=== PATIENT | male | born 1955 | race American Indian/Alaskan Native ===

== ENCOUNTER 2017-05-05 07:47 | Inpatient (IN) | payer MEDICARE ==
[2017-05-05] MEDS ORDERED: Albuterol-Ipratrop 3 mg / 0.5 (3 ml) UD ONE ×2 (08:17→08:48)
[2017-05-05] MEDS ORDERED: Albuterol-Ipratrop 3 mg / 0.5 (3 ml) UD INH STA ×2 (08:28→08:29)
[2017-05-05] MEDS ORDERED: MethylPREDNISolone 40 mg Vial IVP STA (08:28)
[2017-05-05] MEDS ORDERED: METHYLPREDNISOLONE IVPB ONE (08:53)
[2017-05-05] MEDS ORDERED: Magnesium Sulfate 1 gm in D5W 1 GM/100 ML BAG IVPB ONE ×2 (08:54→10:02)
[2017-05-05] MEDS: Magnesium Sulfate 1 gm in D5W 1 GM/100 ML BAG IVPB SCH ×2 (09:12→10:06)
[2017-05-05 09:19] LABS: BASO # 0.1 K/uL (0.0-0.2); BASO % 0.9 % (0.0-2.0); EOS % 0.2 % (0.0-4.0); HEMATOCRIT 41.1 % (35.0-51.0); LYMPH # 1.4 K/uL (1.0-4.3); LYMPH % 9.8 % (20.0-40.0); MEAN CELL VOLUME 84.4 fL (80.0-94.0); MEAN CORPUSCULAR HEMOGLOBIN 26.4 pg (27.0-31.0); MEAN CORPUSCULAR HGB CONC 31.2 g/dL (33.0-37.0); MEAN PLATELET VOLUME 9.3 fL (7.2-11.7); MONO # 0.6 K/uL (0.0-0.8); MONO % 4.6 % (0.0-10.0); PLATELET COUNT 193 K/uL (130-400); RED CELL DISTRIBUTION WIDTH 20.4 % (11.5-14.5); WHITE BLOOD COUNT 13.9 K/uL (4.8-10.8)
--- NOTE | 2017-05-05 09:23 | RAD ---
PROCEDURE: CHEST RADIOGRAPH, 1 VIEW HISTORY: SOB COMPARISON: None available. FINDINGS: LUNGS: Patchy opacity at right lung base, nonspecific. Follow-up advised to exclude developing pneumonia. Base may reflect early subsegmental atelectasis. PLEURA: No pneumothorax or pleural fluid seen. CARDIOVASCULAR: Normal heart size. AICD. No congestive change. OSSEOUS STRUCTURES: No significant abnormalities. VISUALIZED UPPER ABDOMEN: Normal. OTHER FINDINGS: None. IMPRESSION: Patchy opacity at right lung base. Followup to exclude developing pneumonia. AICD.
[2017-05-05 09:28] LABS: POTASSIUM 4.5 mmol/L (3.6-5.2)
[2017-05-05 09:31] LABS: ALB/GLOB RATIO 0.9 (1.0-2.1); BILIRUBIN,TOTAL 1.7 mg/dL (0.2-1.3)
[2017-05-05 09:32] LABS: CALCIUM 9.1 mg/dl (8.6-10.4)
--- NOTE | 2017-05-05 09:39 | C.PDOC ---
History Of Present Illness A 61 year old male, whose past medical history includes A-fib, CHF, and HTN, presents to the emergency department complaining of shortness of breath, which began 5 days ago and is worsening. The patient reports a chronic cough, he denies any chest pain, fever, or any other complaints at this time. The patient was [place] [facility] [place] and was taken off of lasix by staff at medical center. The patient states he is unable to lay flat while sleeping. Time Seen by Provider: 05/05/17 08:26 Chief Complaint (Nursing): Shortness Of Breath History Per: Patient Onset/Duration Of Symptoms: Days (x 5 days ) Current Symptoms Are (Timing): Worse Quality: Other Exacerbating Factor(s): Laying Flat, Coughing Severity: Mild Associated Symptoms: denies: Fever, Chills, Chest Pain Past Medical History Vital Signs: Last Vital Signs Temp Pulse 78 05/05/17 16:07 Resp 18 05/05/17 16:07 BP 149/101 H 05/05/17 16:07 Pulse Ox 97 05/05/17 16:07 - Medical History PMH: Atrial Fibrillation, CHF, HTN Surgical History: Cholecystectomy Family History: States: No Known Family Hx - Social History Hx Alcohol Use: No Hx Substance Use: No - Immunization History Hx Tetanus Toxoid Vaccination: No Hx Influenza Vaccination: Yes Hx Pneumococcal Vaccination: No Review Of Systems Except As Marked, All Systems Reviewed And Found Negative. Constitutional: Negative for: Fever Cardiovascular: Negative for: Chest Pain Respiratory: Positive for: Shortness of Breath Physical Exam - Physical Exam Appears: Other (mild to moderate distress ) Skin: Normal Color, Warm, Dry Eye(s): bilateral: Normal Inspection, PERRL, EOMI Nose: Normal Throat: Normal Neck: Normal Cardiovascular: Rhythm Regular Respiratory: Decreased Breath Sounds (diminished breath sounds bilaterally ), Wheezing (exasperated wheezing bilaterally) Gastrointestinal/Abdominal: Normal Exam Extremity: Pedal Edema (2+ pitting edema to the lower extremities ) Neurological/Psych: Oriented x3 ED Course And Treatment - Laboratory Results Result Diagrams: 05/05/17 09:11 05/05/17 09:11 O2 Sat by Pulse Oximetry: 87 (RA ) Pulse Ox Interpretation: Normal - Other Rad CXR X-Ray: Viewed By Me, Read By Radiologist Interpretation: PROCEDURE: CHEST RADIOGRAPH, 1 VIEW. HISTORY: SOB. COMPARISON: None available. FINDINGS: LUNGS: Patchy opacity at right lung base, nonspecific. Follow-up advised to exclude developing pneumonia. Base may reflect early subsegmental atelectasis. PLEURA: No pneumothorax or pleural fluid seen. CARDIOVASCULAR: Normal heart size. AICD. No congestive change. OSSEOUS STRUCTURES: No significant abnormalities. VISUALIZED UPPER ABDOMEN: Normal. OTHER FINDINGS: None. IMPRESSION: Patchy opacity at right lung base. Followup to exclude developing pneumonia. AICD. Critical Care Time - Critical Care Note Total Time (in mins): 40 Documented critical care: time excludes all time spent performing seperately billable procedures. Medical Decision Making Medical Decision Making: Treatment: -- EKG -- Abuterol, Lasix, methylprednisolone -- High flow nasal canal, peak flow -- Urinalysis EK BPM Sinus rhythm First degree AV block. Normal axis. Progress Notes: Patient was put on high flow nasal canal oxygen and lasix, the patient states he is feeling better. I will be reaching out to his primary medical doctor. Case discussed with Dr. Levin 05/05/17 11:57AM Disposition - Disposition Disposition Time: 11:00 Condition: GUARDED - Clinical Impression Clinical Impression: COPD (chronic obstructive pulmonary disease), CHF (congestive heart failure) - Scribe Statement The provider has reviewed the documentation as recorded by the Scribe Zunilda Santos All medical record entries made by the Scribe were at my direction and personally dictated by me. I have reviewed the chart and agree that the record accurately reflects my personal performance of the history, physical exam, medical decision making, and the department course for this patient. I have also personally directed, reviewed, and agree with the discharge instructions and disposition.
[2017-05-05 09:42] LABS: BASOPHIL 1 % (0-2); NEUTROPHIL 88 % (50-75); TOTAL CELLS COUNTED 100
[2017-05-05 09:45] LABS: TROPONIN I 0.04 ng/mL (0.00-0.120)
[2017-05-05 10:24] LABS: ARTERIAL BLOOD HGB O2 SAT 87.4 % (95.0-98.0); CARBOXYHEMOGLOBIN 3.5 % (0.5-1.5); DRAW SITE LB; HHB 7.9 % (0.0-5.0); METHEMOGLOBIN 1.2 % (0.0-3.0)
[2017-05-05 11:19] LABS: RBC URINE 1 /hpf (0-3); URINE BILIRUBIN NEGATIVE (NEGATIVE); URINE BLOOD NEGATIVE (NEGATIVE); URINE COLOR Colorless (YELLOW); URINE GLUCOSE (UA) NORMAL (Normal); URINE KETONE NEGATIVE (NEGATIVE); URINE LEUKOCYTE ESTERASE NEG Leu/uL (Negative); URINE PROTEIN NEGATIVE (NEGATIVE); URINE UROBILINOGEN NORMAL mg/dL (0.2-1.0)
--- NOTE | 2017-05-05 16:23 | CP.PCM.HP ---
History of Present Illness - History of Present Illness History of Present Illness: hart with edema for last 4-5 days as lasix was held due to progressive renal insuff. [place] [facility] [place], seen by pmd and cardio as outpt but failed to improve Present on Admission - Present on Admission Any Indicators Present on Admission: Yes Review of Systems - Review of Systems Systems not reviewed;Unavailable: Respiratory Distress - Cardiovascular Cardiovascular: Dyspnea, Edema, Orthopnea, Pedal Edema - Respiratory Respiratory: Dyspnea - Neurological Neurological: Weakness Past Patient History - Infectious Disease Hx of Infectious Diseases: None - Past Social History Smoking Status: Former Smoker - CARDIAC Hx Atrial Fibrillation: Yes Hx Congestive Heart Failure: Yes Hx Hypertension: Yes - RENAL Hx Renal Failure: Yes (stg 3) - ENDOCRINE/METABOLIC Hx Diabetes Mellitus Type 2: Yes - MUSCULOSKELETAL/RHEUMATOLOGICAL Hx Gout: Yes - PSYCHIATRIC Hx Substance Use: No - SURGICAL HISTORY Hx Cholecystectomy: Yes - ANESTHESIA Hx Anesthesia: Yes Hx Anesthesia Reactions: No Hx Malignant Hyperthermia: No Meds Allergies/Adverse Reactions: Allergies Allergy/AdvReac Type Severity Reaction Status Date / Time No Known Allergies Allergy Verified 05/05/17 08:24 Physical Exam - Constitutional Appears: Chronically Ill - Head Exam Head Exam: ATRAUMATIC, NORMOCEPHALIC - Eye Exam Eye Exam: Normal appearance Pupil Exam: NORMAL ACCOMODATION - ENT Exam ENT Exam: Mucous Membranes Moist - Respiratory Exam Respiratory Exam: Decreased Breath Sounds - Cardiovascular Exam Cardiovascular Exam: REGULAR RHYTHM, +S1, +S2 - GI/Abdominal Exam GI & Abdominal Exam: Normal Bowel Sounds, Soft - Rectal Exam Rectal Exam: Deferred - Neurological Exam Neurological exam: Alert, Oriented x3 - Psychiatric Exam Psychiatric exam: Normal Affect, Normal Mood - Skin Skin Exam: Intact Results - Vital Signs Recent Vital Signs: Last Vital Signs Temp Pulse 78 05/05/17 16:07 Resp 18 05/05/17 16:07 BP 149/101 H 05/05/17 16:07 Pulse Ox 97 05/05/17 16:07 - Labs Result Diagrams: 05/05/17 09:11 05/05/17 09:11 Labs: Laboratory Results - last 24 hr 05/05/17 11:11 Urine Color Colorless Urine Clarity Clear Urine pH 5.0 Ur Specific [place] 1.005 Urine Protein Negative Urine Glucose (UA) Normal Urine Ketones Negative Urine Blood Negative Urine Nitrate Negative Urine Bilirubin Negative Urine Urobilinogen Normal Ur Leukocyte Esterase Neg Urine RBC (Auto) 1 Ur Squamous Epith Cells < 1 Assessment & Plan (1) Cardiomyopathy Status: Acute (2) Diabetes 1.5, managed as type 2 Status: Acute (3) 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
[2017-05-05] MEDS: Ipratropium 0.02% Inhal Soln (0.5 mg/2.5 ml) UD IH SCH ×2 (16:50→20:20)
[2017-05-05] MEDS: Verapamil 240 mg ER Tab PO SCH (18:38)
--- NOTE | 2017-05-05 18:53 | US ---
HISTORY: abn LFT COMPARISON: None. TECHNIQUE: Sonographic evaluation of the abdomen. FINDINGS: LIVER: Measures 16.1 cm. Heterogeneous increased echogenicity of the liver parenchyma. No mass. No intrahepatic bile duct dilatation. GALLBLADDER: Status post cholecystic COMMON BILE DUCT: Measures 6.4 mm. No stones. No dilatation. PANCREAS: Unremarkable as visualized. No mass. No ductal dilatation. RIGHT KIDNEY: Measures 10 x 4.5 x 5.95cm. Increased echogenicity of the right kidney is noted. There is suspicious for nonobstructing calculus at the upper pole of the right kidney measures 6 x 4 x 6 millimeter. There is a cyst seen at the mid to upper pole right kidney measures 1.5 x 1.8 x 2.1 centimeter. LEFT KIDNEY: Measures 10.2 x 5.1 x 6.1cm. Mild increased echogenicity of the left kidney is noted. Midpole cyst measures 2.3 x 1.8 x 2.2 centimeter. SPLEEN: Normal in size and contour. No mass. AORTA: No aneurysmal dilatation. IVC: Unremarkable. OTHER FINDINGS: Trace free fluid in the upper abdomen. IMPRESSION: Heterogeneous echogenic liver suggestive of [id number] steatosis. Suspicious for nonobstructing calculus at the upper pole of the right kidney. Bilateral renal cyst. Trace amount of free fluid in the upper abdomen.
[2017-05-05] MEDS ORDERED: Ipratropium 0.02% Inhal Soln (0.5 mg/2.5 ml) UD IH ONE ×2 (20:28)
--- NOTE | 2017-05-05 20:51 | CP.PCM.CON ---
History of Present Illness - History of Present Illness History of Present Illness: 61 Male with End stage CMP and EF 10-15%, CKD admitted with acute on chronic CHF systolic ider Add Entresto and increase Lasix to 40 IV BID Will consider referring patient to transplant center Past Patient History - Infectious Disease Hx of Infectious Diseases: None - Past Social History Smoking Status: Former Smoker - CARDIAC Hx Atrial Fibrillation: Yes Hx Congestive Heart Failure: Yes Hx Hypertension: Yes - RENAL Hx Renal Failure: Yes (stg 3) - ENDOCRINE/METABOLIC Hx Diabetes Mellitus Type 2: Yes - MUSCULOSKELETAL/RHEUMATOLOGICAL Hx Gout: Yes - PSYCHIATRIC Hx Substance Use: No - SURGICAL HISTORY Hx Cholecystectomy: Yes - ANESTHESIA Hx Anesthesia: Yes Hx Anesthesia Reactions: No Hx Malignant Hyperthermia: No Meds Allergies/Adverse Reactions: Allergies Allergy/AdvReac Type Severity Reaction Status Date / Time No Known Allergies Allergy Verified 05/05/17 08:24 - Medications Medications: Current Medications Apixaban (Eliquis) 2.5 mg PO BID [facility] Last Admin: 05/05/17 18:39 Dose: 2.5 mg Furosemide (Lasix) 40 mg IVP BID [facility] Insulin Aspart (Novolog) 0 unit SC ACS [facility] PRN Reason: Protocol Ipratropium [place] (Atrovent) 0.5 mg IH RQ6 [facility] Last Admin: 05/05/17 20:20 Dose: 0.5 mg Sacubitril/Valsartan (Entresto 24 Mg-26 Mg) 1 tab PO BID [facility] Verapamil HCl (Calan Sr Tab) 240 mg PO DAILY [facility] Last Admin: 05/05/17 18:38 Dose: 240 mg Results - Vital Signs Recent Vital Signs: Last Vital Signs Temp 97.1 F L 05/05/17 20:20 Pulse 77 05/05/17 20:20 Resp 20 05/05/17 20:20 BP 158/100 H 05/05/17 20:20 Pulse Ox 97 05/05/17 20:20 - Labs Result Diagrams: 05/05/17 09:11 05/05/17 09:11 Labs: Laboratory Results - last 24 hr 05/05/17 11:11 Urine Color Colorless Urine Clarity Clear Urine pH 5.0 Ur Specific [place] 1.005 Urine Protein Negative Urine Glucose (UA) Normal Urine Ketones Negative Urine Blood Negative Urine Nitrate Negative Urine Bilirubin Negative Urine Urobilinogen Normal Ur Leukocyte Esterase Neg Urine RBC (Auto) 1 Ur Squamous Epith Cells < 1
[2017-05-05] MEDS: (Novolog) Insulin Aspart, Recombinant 100 u/ml 10 ml vial SC SCH ×2 (22:13→22:17)
[2017-05-05] MEDS ORDERED: (Novolin R) Insulin Human Regular 100 units/ml vial ONE (22:17)
[2017-05-06] MEDS: Ipratropium 0.02% Inhal Soln (0.5 mg/2.5 ml) UD IH SCH ×4 (02:31→19:49)
[2017-05-06] MEDS: (Novolog) Insulin Aspart, Recombinant 100 u/ml 10 ml vial SC SCH ×2 (08:46→22:01)
[2017-05-06] MEDS: Sacubitril/Valsartan 24-26mg Tab PO SCH ×2 (09:51→17:21)
[2017-05-06] MEDS: Verapamil 240 mg ER Tab PO SCH (09:51)
--- NOTE | 2017-05-06 11:25 | CP.PCM.PN ---
<VIVIANA PEACE - Last Filed: 05/06/17 17:07> Subjective - Date & Time of Evaluation Date of Evaluation: 05/06/17 Time of Evaluation: 11:18 - Subjective Subjective: Viviana Peace, PGY1, Progress Note for Dr. Cruz: Pt seen and examined at bedside. NO acute events overnight. Pt currently still SOB, improved since admission, with lasix. Denies cp, diaphoresis, f/c/n/v/d, abdominal pain. Objective - Vital Signs/Intake and Output Vital Signs (last 24 hours): Temp Pulse Resp BP Pulse Ox 98 F 69 20 150/90 94 L 05/06/17 07:46 05/06/17 09:50 05/06/17 07:46 05/06/17 09:51 05/06/17 07:46 Intake and Output: 05/06/17 05/06/17 06:59 18:59 Output Total 6000 Balance -6000 - Medications Medications: Current Medications Apixaban (Eliquis) 2.5 mg PO BID [facility] Last Admin: 05/06/17 09:51 Dose: 2.5 mg Furosemide (Lasix) 40 mg IVP BID [facility] Last Admin: 05/06/17 09:51 Dose: 40 mg Insulin Aspart (Novolog) 0 unit SC ACBHS [facility] PRN Reason: Protocol Last Admin: 05/06/17 08:46 Dose: Not Given Ipratropium [place] (Atrovent) 0.5 mg IH RQ6 [facility] Last Admin: 05/06/17 07:22 Dose: 0.5 mg Sacubitril/Valsartan (Entresto 24 Mg-26 Mg) 1 tab PO BID [facility] Last Admin: 05/06/17 09:51 Dose: 1 tab Verapamil HCl (Calan Sr Tab) 240 mg PO DAILY [facility] Last Admin: 05/06/17 09:51 Dose: 240 mg - Constitutional Appears: No Acute Distress - Head Exam Head Exam: ATRAUMATIC, NORMOCEPHALIC - Eye Exam Eye Exam: PERRL - ENT Exam ENT Exam: Mucous Membranes Moist - Respiratory Exam Respiratory Exam: Decreased Breath Sounds - Cardiovascular Exam Cardiovascular Exam: +S1, +S2 - GI/Abdominal Exam GI & Abdominal Exam: Soft, Normal Bowel Sounds. absent: Tenderness - Extremities Exam Extremities Exam: absent: Calf Tenderness, Pedal Edema - Neurological Exam Neurological Exam: Awake, Normal Gait, Oriented x3 - Psychiatric Exam Psychiatric exam: Normal Mood - Skin Skin Exam: Dry, Warm Assessment and Plan - Assessment and Plan (Free Text) Assessment: 61M with PMH afib, end stage cardiomyopathy, CHF with EF 10-15%, CKD, admitted for dyspnea 2/2 likely acute on chronic systolic CHF vs COPD exacerbation (less likely). Pt had a recent admission for SOB at [facility] last week, where Lasix was discontinued. Cardiology consulted for further management. Echocardiogram this AM showed low EF 8%, icd in place, severe pulm htn, dilated heart, functional aortic insufficiency. Dr Cruz referred pt to Dr. Cullen Vazquez for heart transplant at [facility], filled out transfer orders. Plan: Dyspnea 2/2 likely acute on chronic systolic CHF vs COPD exacerbation (less likely): - Pt c/o sob and orthopnea x5 days [employer], started after he stopped taking Lasix ( As advised from [facility] due to worsening liver function). - Received duonebs, methyprednisolone in ED. C/w duonebs - Hx of cardiomyopathy - Last echo showed EF of 10-15%, repeat echo 05/06 showed EF 8%, dilated heart, RVSP 61 mmHg, severe pulm HTN, function aortic insufficiency. - Outpt Associate Professor Of Kinesiology is Dr. Orozco. Will call him to obtain pacemaker company's name, office # [phone]. - Received Lasix 40 mgx1 in ED - Currently on Lasix 40 mg IVP bid, Entresto, verapamil. consider adding aldactone. - Avoiding BB as pt has past SE of bronchospasm - Referred to Dr. Cullen Vazquez (Cardiology) at [facility] for evaluation of heart transplant. Filled out transfer orders, d/w patient and (okay to transfer) , now awaiting transfer. Hx of afib: - EKG shows HR 82, SR with 1st degree AV block. ARCHIE 238 ms, QRS 136ms, QTc 472 ms - CXR shows patchy opacity at right lung base, developing pna?, AICd in place. - CUrrently HR 60-70s, afib, currently rate controlled with verapamil 240 mg PO daily and AC with eliquis 2.5 mg po bid Transaminits: - Elevated LFTs: AST 66, ALT 316 - ABd US shows heterogenous echogenic liver s/o mild to mod steatosis. suspicious for nonobstructing calculus at upper pole of r kidney. b/l renal cyst. - cont to monitor. Discussed with attending, Dr. Anthony Peace, PGY1 <Michael Cruz - Last Filed: 05/06/17 20:45> Objective - Vital Signs/Intake and Output Vital Signs (last 24 hours): Temp Pulse Resp BP Pulse Ox 97.7 F 79 18 159/119 H 92 L 05/06/17 15:54 05/06/17 18:00 05/06/17 15:54 05/06/17 19:13 05/06/17 15:54 Intake and Output: 05/06/17 05/07/17 18:59 06:59 Intake Total 400 Balance 400 - Medications Medications: Current Medications Apixaban (Eliquis) 2.5 mg PO BID [facility] Last Admin: 05/06/17 17:21 Dose: 2.5 mg Furosemide (Lasix) 40 mg IVP BID [facility] Last Admin: 05/06/17 17:21 Dose: 40 mg Hydralazine HCl (Apresoline) 10 mg IVP Q6H PRN PRN Reason: Systolic Blood Pressure > 160 Insulin Aspart (Novolog) 0 unit SC [facility] PRN Reason: Protocol Last Admin: 05/06/17 08:46 Dose: Not Given Ipratropium [place] (Atrovent) 0.5 mg IH RQ6 [facility] Last Admin: 05/06/17 19:49 Dose: 0.5 mg Sacubitril/Valsartan (Entresto 24 Mg-26 Mg) 1 tab PO BID [facility] Last Admin: 05/06/17 17:21 Dose: 1 tab Verapamil HCl (Calan Sr Tab) 240 mg PO DAILY [facility] Last Admin: 05/06/17 09:51 Dose: 240 mg Assessment and Plan - Assessment and Plan (Free Text) Plan: Patient seen and evaluated Still symptomatic Transfer to Heart Failure/Heart Transplant center Patient agreed and signed the EMTALA
--- NOTE | 2017-05-06 11:50 | CARD ---
APPROVED REPORT EKG Measurement Heart [id number] ID [id number] <Conclusion> Sinus rhythm with 1st degree AV block Nonspecific intraventricular block Possible Anterolateral infarct, age undetermined Abnormal ECG
--- NOTE | 2017-05-06 18:49 | CARD ---
APPROVED REPORT EXAM: Two-dimensional and M-mode echocardiogram with Doppler and color Doppler. Other Information Quality : GoodRhythm : NSR INDICATION Cardiomyopathy Congestive Heart Failure COPD RISK FACTORS Hyperlipidemia Diabetes M-Mode DIMENSIONS RVDd3.79 (2.1-3.2cm)Left Atrium (MM)6.09 (2.5-4.0cm) IVSd1.25 (0.7-1.1cm)Aortic Root3.24 (2.2-3.7cm) LVDd5.31 (4.0-5.6cm)Aortic Cusp Exc.2.69 (1.5-2.0cm) PWd1.29 (0.7-1.1cm)FS (%) 4 % LVDs5.12 (2.0-3.8cm)LVEF (%)8 (>50%) Aortic Valve AI P 1/2 [id number] Mitral Valve MV E Feoqimws236.4cm/sMV A Gjtghwfl74.0cm/sE/A ratio3.1 TDI E/Lateral E'0.0E/Medial E'0.0 Tricuspid Valve TR Peak Eiqnsuew261su/sTR Peak Gr.[id number] LEFT VENTRICLE The Left Ventricle is borderline dilated. There is borderline concentric left ventricular hypertrophy. Left ventricle systolic function is severely impaired. The Ejection Fraction is 10-15%. There is global hypokinesis of the left ventricle. Transmitral Doppler flow pattern is Grade II-pseudonormal filling dynamics. There is no ventricular septal defect visualized. RIGHT VENTRICLE The right ventricle is normal size. The right ventricular systolic function is normal. ATRIA The left atrium is moderately dilated. The right atrium is mildly dilated. AORTIC VALVE The aortic valve is mildly sclerotic. The aortic valve is tri-cuspid. There is mild aortic regurgitation. There is no aortic valvular stenosis. MITRAL VALVE The mitral valve is normal in structure. There is no evidence of mitral valve prolapse. Mitral regurgitation is moderate to severe. TRICUSPID VALVE The tricuspid valve is normal in structure. There is moderate tricuspid regurgitation. Right ventricular systolic pressure is estimated at greater than 60 mmHg. There is severe pulmonary hypertension. PULMONIC VALVE The pulmonary valve is normal in structure. There is moderate pulmonic valvular regurgitation. GREAT VESSELS The aortic root is normal in size. The IVC is dilated. PERICARDIAL EFFUSION There is no pericardial effusion. <Conclusion> Left ventricle systolic function is severely impaired. The Ejection Fraction is 10-15%. Transmitral Doppler flow pattern is Grade II-pseudonormal filling dynamics. There is mild aortic regurgitation. Mitral regurgitation is moderate to severe. There is severe pulmonary hypertension.
--- NOTE | 2017-05-06 19:47 | CP.PCM.PN ---
Subjective - Date & Time of Evaluation Date of Evaluation: 05/06/17 Time of Evaluation: 19:44 - Subjective Subjective: feels better with iv lasix and entresto, but ef severely depressed 10-15% agree with transfer to [facility] heart failure program Objective - Vital Signs/Intake and Output Vital Signs (last 24 hours): Temp Pulse Resp BP Pulse Ox 97.7 F 75 18 159/119 H 92 L 05/06/17 15:54 05/06/17 15:54 05/06/17 15:54 05/06/17 19:13 05/06/17 15:54 Intake and Output: 05/06/17 05/07/17 18:59 06:59 Intake Total 400 Balance 400 - Medications Medications: Current Medications Apixaban (Eliquis) 2.5 mg PO BID [facility] Last Admin: 05/06/17 17:21 Dose: 2.5 mg Furosemide (Lasix) 40 mg IVP BID [facility] Last Admin: 05/06/17 17:21 Dose: 40 mg Insulin Aspart (Novolog) 0 unit SC ACBHS [facility] PRN Reason: Protocol Last Admin: 05/06/17 08:46 Dose: Not Given Ipratropium [place] (Atrovent) 0.5 mg IH RQ6 [facility] Last Admin: 05/06/17 13:39 Dose: 0.5 mg Sacubitril/Valsartan (Entresto 24 Mg-26 Mg) 1 tab PO BID [facility] Last Admin: 05/06/17 17:21 Dose: 1 tab Verapamil HCl (Calan Sr Tab) 240 mg PO DAILY [facility] Last Admin: 05/06/17 09:51 Dose: 240 mg - Constitutional Appears: Chronically Ill - Head Exam Head Exam: ATRAUMATIC, NORMOCEPHALIC - Eye Exam Eye Exam: Normal appearance - Neck Exam Neck Exam: Full ROM - Respiratory Exam Respiratory Exam: Decreased Breath Sounds - Cardiovascular Exam Cardiovascular Exam: +S1, +S2 - GI/Abdominal Exam GI & Abdominal Exam: Normal Bowel Sounds - Rectal Exam Rectal Exam: Deferred - Neurological Exam Neurological Exam: Alert, Awake, Oriented x3 - Psychiatric Exam Psychiatric exam: Normal Affect, Normal Mood - Skin Skin Exam: Intact Assessment and Plan (1) Cardiomyopathy Status: Acute (2) Diabetes 1.5, managed as type 2 Status: Acute (3) 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
[2017-05-07 00:50] VITALS: RESP 20
[2017-05-07] MEDS: Ipratropium 0.02% Inhal Soln (0.5 mg/2.5 ml) UD IH SCH (07:19)
[2017-05-07 07:53] LABS: BASO # 0.1 K/uL (0.0-0.2); BASO % 0.4 % (0.0-2.0); EOS % 0.1 % (0.0-4.0); HEMATOCRIT 38.3 % (35.0-51.0); LYMPH # 1.6 K/uL (1.0-4.3); LYMPH % 11.4 % (20.0-40.0); MEAN CELL VOLUME 83.9 fL (80.0-94.0); MEAN CORPUSCULAR HEMOGLOBIN 26.7 pg (27.0-31.0); MEAN CORPUSCULAR HGB CONC 31.9 g/dL (33.0-37.0); MONO # 0.7 K/uL (0.0-0.8); MONO % 4.9 % (0.0-10.0); NRBC % 0.1 % (0.0-2.0); RED CELL DISTRIBUTION WIDTH 19.4 % (11.5-14.5); WHITE BLOOD COUNT 14.2 K/uL (4.8-10.8)
[2017-05-07] MEDS: (Novolog) Insulin Aspart, Recombinant 100 u/ml 10 ml vial SC SCH (07:56)
[2017-05-07 08:02] LABS: INR 1.8
[2017-05-07 08:03] LABS: CALCIUM 9.6 mg/dl (8.6-10.4); PHOSPHOROUS 4.2 mg/dL (2.5-4.5)
[2017-05-07 08:04] LABS: MAGNESIUM 2.1 mg/dL (1.6-2.3)
[2017-05-07 08:10] VITALS: TEMP 97.3; O2SAT 95
[2017-05-07 10:16] VITALS: BP 156/80
[2017-05-07] MEDS: Sacubitril/Valsartan 24-26mg Tab PO SCH (10:16)
[2017-05-07] MEDS: Verapamil 240 mg ER Tab PO SCH (10:17)
--- NOTE | 2017-05-07 11:28 | CP.PCM.PN ---
<VIVIANA PEACE - Last Filed: 05/07/17 12:48> Subjective - Date & Time of Evaluation Date of Evaluation: 05/07/17 Time of Evaluation: 11:24 - Subjective Subjective: Viviana Peace, PGY1, Progress Note for Dr. Cruz: Pt seen and examined at bedside. Pt c/o orthopnea and requires HOB elevation over 45 degrees to be comfortable. Denies cp, diaphoresis, f/c/n/v/d, abdominal pain. Objective - Vital Signs/Intake and Output Vital Signs (last 24 hours): Temp Pulse Resp BP Pulse Ox 97.3 F L 92 H 20 156/80 H 95 05/07/17 07:20 05/07/17 10:13 05/07/17 07:20 05/07/17 10:16 05/07/17 07:20 - Medications Medications: Current Medications Apixaban (Eliquis) 2.5 mg PO BID [facility] Last Admin: 05/07/17 10:17 Dose: 2.5 mg Furosemide (Lasix) 40 mg IVP BID [facility] Last Admin: 05/07/17 10:16 Dose: 40 mg Hydralazine HCl (Apresoline) 10 mg IVP Q6H PRN PRN Reason: Systolic Blood Pressure > 160 Last Admin: 05/07/17 08:12 Dose: 10 mg Insulin Aspart (Novolog) 0 unit SC ACBHS [facility] PRN Reason: Protocol Last Admin: 05/07/17 07:56 Dose: Not Given Ipratropium [place] (Atrovent) 0.5 mg IH RQ6 [facility] Last Admin: 05/07/17 07:19 Dose: 0.5 mg Sacubitril/Valsartan (Entresto 24 Mg-26 Mg) 1 tab PO BID [facility] Last Admin: 05/07/17 10:16 Dose: 1 tab Verapamil HCl (Calan Sr Tab) 240 mg PO DAILY [facility] Last Admin: 05/07/17 10:17 Dose: 240 mg - Labs Labs: 05/07/17 07:42 05/07/17 07:42 PT 20.2 SECONDS (9.7-12.2) H 05/07/17 07:42 INR 1.8 05/07/17 07:42 - Constitutional Appears: Other - Head Exam Head Exam: ATRAUMATIC, NORMOCEPHALIC - Eye Exam Eye Exam: PERRL - ENT Exam ENT Exam: Mucous Membranes Moist - Respiratory Exam Respiratory Exam: Decreased Breath Sounds - Cardiovascular Exam Cardiovascular Exam: JVD, RRR, +S1, +S2. absent: Murmur - GI/Abdominal Exam GI & Abdominal Exam: Soft, Normal Bowel Sounds. absent: Tenderness - Extremities Exam Extremities Exam: absent: Calf Tenderness, Pedal Edema - Neurological Exam Neurological Exam: Alert, Awake, Oriented x3 - Psychiatric Exam Psychiatric exam: Normal Mood - Skin Skin Exam: Dry, Warm Assessment and Plan - Assessment and Plan (Free Text) Assessment: 61M with PMH afib, end stage cardiomyopathy, CHF with EF 10-15%, CKD, admitted for dyspnea 2/2 likely acute on chronic systolic CHF vs COPD exacerbation (less likely). [place] [facility] [place], where [place] was discontinued. Cardiology consulted for further management. Echocardiogram this AM showed low EF 8%, icd in place, severe pulm htn, dilated heart, functional aortic insufficiency. Dr Cruz referred pt to Dr. Cullen Vazquez for heart transplant at [facility], filled out transfer orders. This AM, nurse received confirmation that a bed is available at [facility]. Can transfer today. Plan: Dyspnea 2/2 likely acute on chronic systolic CHF vs COPD exacerbation (less likely): - Pt c/o sob and orthopnea x5 days [employer], started after he stopped taking Lasix ( As advised from [facility] due to worsening liver function). - Received duonebs, methyprednisolone in ED. C/w duonebs - Hx of cardiomyopathy - Last echo showed EF of 10-15%, repeat echo 05/06 showed EF 10-15%, L ventricle systolic fxn severely imparied, transmitral doppler flow pattern: grade II pseudo normal filling dynamics. dilated heart, RVSP 61 mmHg, severe pulm HTN, function aortic insufficiency. - Outpt [employer] is Dr. Orozco. Will call him to obtain pacemaker company's name, office # [phone]. - Received Lasix 40 mgx1 in ED - Currently on Lasix 40 mg IVP bid, Entresto, verapamil. consider adding aldactone. - Avoiding BB as pt has past SE of bronchospasm - Referred to Dr. Cullen Vazquez (Cardiology) at [facility] for evaluation of heart transplant. Filled out transfer orders, d/w patient and (okay to transfer). - Will be transferred today. Hx of afib: - EKG shows HR 82, SR with 1st degree AV block. ARCHIE 238 ms, QRS 136ms, QTc 472 ms - CXR shows patchy opacity at right lung base, developing pna?, AICd in place. - CUrrently HR 60-70s, afib, currently rate controlled with verapamil 240 mg PO daily and AC with eliquis 2.5 mg po bid Transaminits: - Elevated LFTs: AST 66, ALT 316 - ABd US shows heterogenous echogenic liver s/o mild to mod steatosis. suspicious for nonobstructing calculus at upper pole of r kidney. b/l renal cyst. - cont to monitor. Discussed with attending, Dr. Anthony Peace, PGY1 <Michael Cruz - Last Filed: 05/07/17 20:12> Objective - Vital Signs/Intake and Output Vital Signs (last 24 hours): Temp Pulse Resp BP Pulse Ox 97.3 F L 72 20 156/80 H 95 05/07/17 07:20 05/07/17 12:00 05/07/17 07:20 05/07/17 10:16 05/07/17 07:20 Intake and Output: 05/07/17 05/08/17 18:59 06:59 Intake Total 360 Balance 360 - Labs Labs: 05/07/17 07:42 05/07/17 07:42 PT 20.2 SECONDS (9.7-12.2) H 05/07/17 07:42 INR 1.8 05/07/17 07:42 Assessment and Plan - Assessment and Plan (Free Text) Plan: Patient seen and evaluated. Patient for transfer today to [facility]. D/W patient
--- NOTE | 2017-05-07 11:31 | CP.PCM.PN ---
Subjective - Date & Time of Evaluation Date of Evaluation: 05/07/17 Time of Evaluation: 11:30 - Subjective Subjective: PT TO BE TRANSFERRED TO [facility] THIS AFTERNOON PER ARY BENNETT. P/U TIME SET FOR [address] PANDYA AND [address]. LUU BOTH MADE AWARE OF THIS PLAN AND BOTH IN AGREEMENT. ALL EMTALA FORMS SIGNED YESTERDAY BY CARDIOLOGY TEAM. NO FURTHER ORDERS. Objective - Vital Signs/Intake and Output Vital Signs (last 24 hours): Temp Pulse Resp BP Pulse Ox 97.3 F L 92 H 20 156/80 H 95 05/07/17 07:20 05/07/17 10:13 05/07/17 07:20 05/07/17 10:16 05/07/17 07:20 - Medications Medications: Current Medications Apixaban (Eliquis) 2.5 mg PO BID [facility] Last Admin: 05/07/17 10:17 Dose: 2.5 mg Furosemide (Lasix) 40 mg IVP BID [facility] Last Admin: 05/07/17 10:16 Dose: 40 mg Hydralazine HCl (Apresoline) 10 mg IVP Q6H PRN PRN Reason: Systolic Blood Pressure > 160 Last Admin: 05/07/17 08:12 Dose: 10 mg Insulin Aspart (Novolog) 0 unit SC ACBHS [facility] PRN Reason: Protocol Last Admin: 05/07/17 07:56 Dose: Not Given Ipratropium [place] (Atrovent) 0.5 mg IH RQ6 [facility] Last Admin: 05/07/17 07:19 Dose: 0.5 mg Sacubitril/Valsartan (Entresto 24 Mg-26 Mg) 1 tab PO BID [facility] Last Admin: 05/07/17 10:16 Dose: 1 tab Verapamil HCl (Calan Sr Tab) 240 mg PO DAILY [facility] Last Admin: 05/07/17 10:17 Dose: 240 mg - Labs Labs: 05/07/17 07:42 05/07/17 07:42 PT 20.2 SECONDS (9.7-12.2) H 05/07/17 07:42 INR 1.8 05/07/17 07:42
--- NOTE | 2017-05-07 11:42 | PCM.HF ---
Heart Failure Core Measure - Heart Failure Ejection Fraction: Less Than 40 % JAXSON Inhibitor Prescribed: Yes Beta-Jethro Prescribed: None Contraindication/Reason for not providing: COPD Angiotensin II Receptor Jethro Prescribed: Yes AnticoagulationTherapy for Atrial Fibrillation/Atrialflutter: Yes Aldosterone Antagonist Prescribed: No Contraindication/Reason for not providing: TRANSFERRED TO [facility] Hydralazine Nitrate Prescribed: No Contraindication/Reason for not providing: TRANSFERRED TO [facility] Implantable Cardioverter Defibrillator Therapy: No Contraindication/Reason for not providing: TRANSFERRED TO [facility] Cardiac Resynchronization Therapy Prescribed: No Contraindication/Reason for not providing: TRANSFERRED TO [facility] - Follow up Will be discharged to: Shelter Facility (TRANSFERRED TO [facility])
[2017-05-07 16:43] VITALS: PULSE 72
== END 2017-05-07 12:45 | disposition short-term general hospital (02) | DRG 291 ==
LOC: C.ER 07:47 → C.9E 11:00 → C.5T 05-06 00:51
PROVIDERS: ADMIT Internal Medicine Pulmonary Disease; ATTEND Internal Medicine Pulmonary Disease
DX: I13.0 Hypertensive heart and chronic kidney disease with heart failure and stage 1 through stage 4 chronic kidney disease, or unspecified chronic kidney disease (principal); I50.23 Acute on chronic systolic (congestive) heart failure; E11.22 Type 2 diabetes mellitus with diabetic chronic kidney disease; I42.9 Cardiomyopathy, unspecified; N18.3 Chronic kidney disease, stage 3 (moderate); I27.2 Other secondary pulmonary hypertension; I48.91 Unspecified atrial fibrillation; I35.1 Nonrheumatic aortic (valve) insufficiency; E78.5 Hyperlipidemia, unspecified; J44.9 Chronic obstructive pulmonary disease, unspecified; Z87.891 Personal history of nicotine dependence; Z95.810 Presence of automatic (implantable) cardiac defibrillator